=== PATIENT | male | born 1995 | race Two or more races ===

== ENCOUNTER 2022-11-27 20:28 | Emergency (ER) | payer SELFPAY | END 2022-11-27 23:14 | disposition home or self-care (01) | LOC: CSHERS 20:28 | DX: R11.2 Nausea with vomiting, unspecified (principal); R19.7 Diarrhea, unspecified; F17.290 Nicotine dependence, other tobacco product, uncomplicated | CPT/HCPCS: 99284 ==

== ENCOUNTER 2023-01-30 20:51 | Emergency (ER) | payer SELFPAY ==
[2023-01-30] MEDS ORDERED: Ketorolac Tromethamine 30 MG/ML VIAL ONE (23:34)
== END 2023-01-31 01:37 | disposition short-term general hospital (02) ==
LOC: CSHERS 20:51
DX: S63.095A Other dislocation of left wrist and hand, initial encounter (principal); S62.112A Displaced fracture of triquetrum [cuneiform] bone, left wrist, initial encounter for closed fracture; S62.002A Unspecified fracture of navicular [scaphoid] bone of left wrist, initial encounter for closed fracture; W22.8XXA Striking against or struck by other objects, initial encounter
CPT/HCPCS: 29125; 96374; J1885